=== PATIENT | male | born 1985 | race Caucasian/White ===

== ENCOUNTER 2024-01-28 12:47 | Outpatient (CLI) | payer MEDICAID, SELFPAY ==
[2024-01-28 10:28] LABS: HCT 48.4 % (40.0-50.0); HGB 16.5 g/dL (13.5-17.5); MCH 29.3 pg (27.0-33.0); MCHC 34.1 % (32.0-36.0); MCV 86 fL (80-95); MPV 9.6 fL (8.0-11.0); Platelet Count 228 10^3/uL (130-400); RBC 5.64 10^6/uL (4.36-5.78); RDW 13.2 % (11.8-14.1); RDW-SD 41.2 fL
[2024-01-28 10:55] LABS: ALT 40 U/L (16-63); AST 26 U/L (15-37); Albumin 4.2 g/dL (3.4-5.0); Alkaline Phosphatase 75 U/L (46-116); Anion Gap 13.7 mmol/L (3-11); BUN 20 mg/dL (7-18); Bilirubin, Total 0.5 mg/dL (0.2-1.0); CO2 26.3 mmol/L (21.0-32.0); CREATININE 1.3 mg/dL (0.70-1.30); Calcium 9.3 mg/dL (8.5-10.1); Calculated LDL 202 mg/dL (<100); Chloride 105 mmol/L (98-107); Cholesterol 292 mg/dL (<200); Estimated GFR 71.22 (mL/min/1.73m2); Glucose 86 mg/dL (74-106); HDL Cholesterol 68 mg/dL (40-60); Potassium 4.1 mmol/L (3.5-5.1); Sodium 145 mmol/L (136-145); TSH 7.56 uIU/Ml (0.36-3.74); Total Protein 8.1 g/dL (6.4-8.2); Triglyceride 113 mg/dL (<150)
[2024-01-28 11:20] LABS: Hemoglobin A1C 5.4 % (<5.7)
[2024-01-28 18:11] LABS: PSA, Screening 0.3 ng/mL (<=2.5)
[2024-01-28 18:12] LABS: HBs Antibody, Quant <3.1 mIU/mL (See Note); Hepatitis B Surface Ab Negative (See Note)
[2024-01-28 18:57] LABS: Hepatitis C Ab w Rflx HCV PCR Negative (Negative)
[2024-01-28 20:47] LABS: Hep A Total Ab w Rflx IgM Positive (Negative)
[2024-01-29 09:56] LABS: Hep A Antibody IgM Negative (Negative)
== END 2024-01-28 12:48 | disposition home or self-care (01) ==
LOC: LBO 12:48
PROVIDERS: PCP Nurse Practitioner Family; Visit Provider Nurse Practitioner Family
DX: E78.00 Pure hypercholesterolemia, unspecified (principal); I10 Essential (primary) hypertension
CPT/HCPCS: 36415; 80053; 80061; 84153; 85027; 86706; 86709; 86803; 83036; 84443

== ENCOUNTER 2024-05-28 19:30 | Outpatient (CLI) | payer MEDICAID, SELFPAY ==
[2024-05-28 16:28] LABS: Abs Immature Grans 0.03 10^3/uL (0.0-0.06); Absolute Basophil Count 0.06 10^3/uL (0.0-0.2); Absolute Eosinophil Count 0.12 10^3/uL (0.0-0.7); Absolute Lymphocyte Count 1.74 10^3/uL (1.2-3.4); Absolute Neutrophil Count 5.48 10^3/uL (1.2-6.7); Basophils % 0.8 %; Eosinophils % 1.5 %; HCT 46.1 % (40.0-50.0); HGB 15.5 g/dL (13.5-17.5); Immature Grans % 0.4 %; Lymphocytes % 21.9 %; MCH 29.7 pg (27.0-33.0); MCHC 33.6 % (32.0-36.0); MCV 88 fL (80-95); MPV 9.4 fL (8.0-11.0); Monocytes % 6.3 %; Neutrophils % 69.1 %; Platelet Count 246 10^3/uL (130-400); RBC 5.22 10^6/uL (4.36-5.78); RDW 12.9 % (11.8-14.1); RDW-SD 41.5 fL; WBC 7.93 10^3/uL (4.4-10.8)
[2024-05-28 16:43] LABS: Hemoglobin A1C 5.5 % (<5.7)
[2024-05-28 17:15] LABS: ALT 36 U/L (16-63); AST 23 U/L (15-37); Albumin 4.1 g/dL (3.4-5.0); Alkaline Phosphatase 76 U/L (46-116); Anion Gap 8.6 mmol/L (3-11); BUN 21 mg/dL (7-18); Bilirubin, Total 0.42 mg/dL (0.2-1.0); CO2 30.4 mmol/L (21.0-32.0); CREATININE 1.1 mg/dL (0.70-1.30); Calcium 9.3 mg/dL (8.5-10.1); Calculated LDL 148 mg/dL (<100); Chloride 107 mmol/L (98-107); Cholesterol 228 mg/dL (<200); Estimated GFR 87.03 (mL/min/1.73m2); Glucose 109 mg/dL (74-106); HDL Cholesterol 66 mg/dL (40-60); Potassium 4.6 mmol/L (3.5-5.1); Sodium 146 mmol/L (136-145); TSH (W/Ref FT4) 1.98 uIU/mL (0.36-3.74); Total Protein 8.1 g/dL (6.4-8.2); Triglyceride 70 mg/dL (<150)
[2024-05-28 17:17] LABS: *AMPHETAMINES SCREEN URINE Negative (Negative); *BARBITURATES SCREEN URINE Negative (Negative); *BENZODIAZEPINES SCREEN URINE Positive (Negative); Cannabinoids THC Negative (Negative); Cocaine Screen,Urine Negative (Negative); METHADONE URINE SCREEN Negative (Negative); OPIATES URINE SCREEN Negative (Negative); Tricyclic Antidepressants Negative (Negative)
[2024-05-28 21:00] LABS: Vitamin D 25 Total 41.9 ng/mL (30-100)
== END 2024-05-28 19:31 | disposition home or self-care (01) ==
LOC: LBO 19:30
PROVIDERS: PCP Nurse Practitioner Family; Visit Provider Nurse Practitioner Family
DX: E55.9 Vitamin D deficiency, unspecified (principal); D51.3 Other dietary vitamin B12 deficiency anemia; I10 Essential (primary) hypertension; E78.5 Hyperlipidemia, unspecified; Z00.00 Encounter for general adult medical examination without abnormal findings
CPT/HCPCS: 36415; 80053; 80061; 80307; 82306; 83036; 84443; 85025

== ENCOUNTER 2024-07-20 12:33 | Outpatient (CLI) | payer MEDICAID, SELFPAY ==
[2024-07-20 13:14] LABS: TSH (W/Ref FT4) 3.19 uIU/mL (0.36-3.74)
== END 2024-07-20 12:34 | disposition home or self-care (01) ==
PROVIDERS: PCP Nurse Practitioner Family; Visit Provider Nurse Practitioner Family
DX: E03.9 Hypothyroidism, unspecified (principal)
CPT/HCPCS: 36415; 84443

== ENCOUNTER 2025-02-15 16:52 | Outpatient (CLI) | payer MEDICAID, SELFPAY ==
[2025-02-15 16:57] LABS: HCT 46.2 % (40.0-50.0); HGB 15.6 g/dL (13.5-17.5); MCH 30.1 pg (27.0-33.0); MCHC 33.8 % (32.0-36.0); MCV 89 fL (80-95); Platelet Count 313 10^3/uL (130-400); RBC 5.18 10^6/uL (4.36-5.78); RDW 13.3 % (11.8-14.1); RDW-SD 43.5 fL; WBC 8.25 10^3/uL (4.4-10.8)
[2025-02-15 17:08] LABS: Hemoglobin A1C 5.6 % (<5.7)
[2025-02-15 17:35] LABS: ALT 51 U/L (16-63); AST 51 U/L (15-37); Albumin 4.3 g/dL (3.4-5.0); Alkaline Phosphatase 59 U/L (46-116); Anion Gap 12.5 mmol/L (3-11); BUN 46 mg/dL (7-18); Bilirubin, Total 0.5 mg/dL (0.2-1.0); CO2 22.5 mmol/L (21.0-32.0); CREATININE 1.3 mg/dL (0.70-1.30); Calcium 9.6 mg/dL (8.5-10.1); Calculated LDL 127 mg/dL (<100); Chloride 106 mmol/L (98-107); Cholesterol 229 mg/dL (<200); Estimated GFR 70.78 (mL/min/1.73m2); Glucose 114 mg/dL (74-106); HDL Cholesterol 60 mg/dL (>or=40); Potassium 5.1 mmol/L (3.5-5.1); Sodium 141 mmol/L (136-145); TSH 3.11 uIU/mL (0.36-3.74); Total Protein 8.1 g/dL (6.4-8.2); Triglyceride 212 mg/dL (<150)
== END 2025-02-15 16:53 | disposition home or self-care (01) ==
LOC: LBO 16:53
PROVIDERS: PCP Nurse Practitioner Family; Visit Provider Nurse Practitioner Family
DX: I10 Essential (primary) hypertension (principal)
CPT/HCPCS: 36415; 80053; 80061; 85027; 83036; 84443

== ENCOUNTER 2025-10-19 10:55 | Outpatient (CLI) | payer MEDICAID, SELFPAY ==
[2025-10-19 10:50] LABS: INR 2.2 (0.9-1.1); Prothrombin Time 20.6 sec (9.1-11.1)
== END 2025-10-19 10:56 | disposition home or self-care (01) ==
LOC: LBO 10:55
PROVIDERS: PCP Nurse Practitioner Family; Visit Provider Internal Medicine Medical Oncology
DX: Z95.2 Presence of prosthetic heart valve (principal)
CPT/HCPCS: 36415; 85610

== ENCOUNTER 2025-10-26 14:09 | Outpatient (CLI) | payer MEDICAID, SELFPAY ==
[2025-10-26 14:40] LABS: INR 1.8 (0.9-1.1); Prothrombin Time 17.6 sec (9.1-11.1)
== END 2025-10-26 14:10 | disposition home or self-care (01) ==
LOC: LBO 14:10
PROVIDERS: PCP Nurse Practitioner Family; Visit Provider Internal Medicine Medical Oncology
DX: Z95.2 Presence of prosthetic heart valve (principal)
CPT/HCPCS: 36415; 85610

== ENCOUNTER 2025-10-30 13:23 | Emergency (ER) | payer MEDICAID, SELFPAY ==
[2025-10-30 13:25] VITALS: BP 184/90; PULSE 81; RESP 14; TEMP 36.6; O2SAT 97
--- NOTE | 2025-10-30 13:30 | DI.RAD_ITS ---
Exam(s) XR WRIST RT COMPLETE EXAM: XR WRIST RT COMPLETE CLINICAL HISTORY: Pain, swelling. TECHNIQUE: 2D digital imaging was performed of the right wrist. Three views were obtained. PA, lateral and oblique views were obtained. COMPARISON: No exams were available for comparison FINDINGS: BONES: No acute fracture is present. No bony destructive lesion is seen. JOINTS: The carpal bones are normally aligned. SOFT TISSUE: Normal. IMPRESSION: 1. Unremarkable radiographs of the right wrist. 2. The preliminary [facility] report was reviewed. DATA REPOSITORY: RADIATION DOSE DELIVERED:
--- NOTE | 2025-10-30 13:46 | W.ED.GENAD ---
Discharge Plan Disposition Patient Disposition: Home Condition: Stable Discharge Details Clinical Impression: Arthralgia of right wrist Primary Care Provider: Rita Brito ED Provider: Alina Willis Home Meds and New Rx's Prescriptions: No Action warfarin 5 mg tablet 5 mg PO DAILY Patient Comments: TAKE ONE TABLET BY MOUTH EVERY DAY metoprolol succinate 50 mg tablet extended release 24 hr 50 mg PO DAILY Patient Comments: TAKE ONE TABLET BY MOUTH EVERY DAY levothyroxine 25 mcg tablet 25 mcg PO DAILY Patient Comments: TAKE 1 TABLET BY MOUTH EVERY DAY lisinopril 40 mg tablet 40 mg PO DAILY Patient Comments: TAKE ONE TABLET BY MOUTH EVERY DAY clonazepam 0.5 mg tablet 0.5 mg PO BID PRN Patient Comments: TAKE ONE TABLET BY MOUTH TWICE A DAY bupropion HCl 300 mg tablet extended release 24 hr 300 mg PO DAILY Patient Comments: TAKE 1 TABLET BY MOUTH EVERY DAY escitalopram oxalate 20 mg tablet 20 mg PO DAILY Patient Comments: TAKE 1 TABLET BY MOUTH EVERY DAY budesonide-formoterol [Symbicort] 160-4.5 mcg/actuation HFA aerosol inhaler 2 inh INHALATION BID PRN Patient Comments: INHALE TWO PUFFS BY MOUTH TWICE A DAY baclofen 10 mg tablet 10 mg PO BID PRN Patient Comments: TAKE ONE TABLET BY MOUTH TWICE A DAY azelastine 137 mcg (0.1 %) spray,non-aerosol 2 spray INTRANASAL ONCE PRN Patient Comments: USE 2 SPRAYS IN EACH NOSTRIL ONCE DAILY montelukast [Singulair] 10 mg tablet 10 mg PO QHS Discharge Instructions Instructions: Joint Pain Additional Instructions: No evidence of acute abnormality on x-rays. Please continue to take Tylenol as directed, Rest, Ice, Compression, and elevation. You may try some topical Voltaren gel which is a local gel or similar. Follow up with primary care provider in 3-5 days. Return to ED sooner if any worsening or concerns. Stand Alone Forms: Portal Information Referrals: Rita Brito [Primary Care Provider, Medicine] - 3 days Clinical Impression: Arthralgia of right wrist Discharge Data Discharge Date/Time-TO BE ENTERED AT DEPARTURE: 10/30/25 15:25 HPI General Mode of arrival: ambulatory. Date/Time Provider Initiated Documentation: 10/30/25 13:33. Limitations to Documentation: no limitations. Information obtained by: patient, RN notes reviewed and old records reviewed. HPI Narrative: 40 year old male presents with Right wrist pain and swelling worse over the last 2 days. Reports had been sore from using a stationary bike and resting his wrist on the bar. This morning he noticed increased swelling after wearing a rigid wrist brace which he got [id number]. He reports that the brace made the pain worse. Denies any known falls or injuries. Did take Tylenol 4 hours ago prior to arrival. Recently 6 weeks ago had open heart surgery and valve replacement. Does take Coumadin daily lisinopril levothyroxine. Denies any other associated symptoms or concerns. Related Data Home Medications ?Medication ?Instructions ?Recorded ?Confirmed azelastine 137 mcg (0.1 %) nasal 2 spray intranasal ONCE PRN 10/30/25 10/30/25 spray baclofen 10 mg tablet 10 mg PO BID PRN 10/30/25 10/30/25 budesonide-formoterol HFA 160 2 inh inhalation BID PRN 10/30/25 10/30/25 mcg-4.5 mcg/actuation aerosol inhaler (Symbicort) bupropion HCl 300 mg 24 hr tablet, 300 mg PO DAILY 10/30/25 10/30/25 extended release clonazepam 0.5 mg tablet 0.5 mg PO BID PRN 10/30/25 10/30/25 escitalopram oxalate 20 mg tablet 20 mg PO DAILY 10/30/25 10/30/25 levothyroxine 25 mcg tablet 25 mcg PO DAILY 10/30/25 10/30/25 lisinopril 40 mg tablet 40 mg PO DAILY 10/30/25 10/30/25 metoprolol succinate 50 mg 50 mg PO DAILY 10/30/25 10/30/25 tablet,extended release 24 hr montelukast 10 mg tablet 10 mg PO QHS 10/30/25 10/30/25 (Singulair) warfarin 5 mg tablet 5 mg PO DAILY 10/30/25 10/30/25 Allergies Allergy/AdvReac Type Severity Reaction Status Date / Time No Known Allergies Allergy Unverified 10/30/25 13:32 General Stated Complaint: Orthopedic HANG: 4 Review of Systems Musculoskeletal Musculoskeletal: Reports arthralgias and Reports joint swelling Exam Extrem Right upper extremity: wrist Details: tenderness Location: of the dorsal wrist, swelling Location: of the dorsal wrist and normal vascular exam; no abrasions, no lacerations and no deformity Course Vital Signs Vital signs: Vital Signs Temperature 36.6 C 10/30/25 13:25 Pulse 81 10/30/25 13:25 Respiratory Rate 14 10/30/25 13:25 Blood Pressure 184/90 H 10/30/25 13:25 Pulse Oximetry 97 10/30/25 13:25 Temperature 36.6 C 10/30/25 13:25 Temperature Source Oral 10/30/25 13:25 Pulse 81 10/30/25 13:25 Respiratory Rate 14 10/30/25 13:25 Blood Pressure 184/90 H 10/30/25 13:25 Blood Pressure Position Sitting 10/30/25 13:25 Pulse Oximetry 97 10/30/25 13:25 Oxygen Delivery Method Room Air 10/30/25 13: Oxygen Flow Rate 0 10/30/25 13:25 Medical Decision Making 40 year old male presents with Right wrist pain and swelling worse over the last 2 days. Reports had been sore from using a stationary bike and resting his wrist on the bar. This morning he noticed increased swelling after wearing a rigid wrist brace which he got [id number]. He reports that the brace made the pain worse. Denies any known falls or injuries. Did take Tylenol 4 hours ago prior to arrival. Recently 6 weeks ago had open heart surgery and valve replacement. Does take Coumadin daily lisinopril levothyroxine. Denies any other associated symptoms or concerns. X-ray right wrist ordered. Xray shows no acute abnormality, will give josh wrap and have patient follow up with PCP. Will insdtruct to continue to take Tylenol as needed RICE procedures. This text was generated using [employer] system, please disregard any oddities of phrase or misspellings. Imaging Data Radiologic Study: Imaging: X-Ray Radiologist's impression: Exam: XR Right Wrist Exam date and time: 10/30/2025 1:55 PM Age: 40 years old Clinical indication: Pain; Wrist; TECHNIQUE: Imaging protocol: Radiologic exam of the right wrist. Views: 3 or more views. COMPARISON: No relevant prior studies available. FINDINGS: Bones/joints: There is no evidence of acute fracture.There is no evidence of malalignment or dislocation. Soft tissues: Soft tissue swelling of the wrist IMPRESSION: There is no evidence of acute fracture.There is no evidence of malalignment or dislocation. Thank you for allowing us to participate in the care of your patient. Dictated and Authenticated by: Vikki Hampton MD [facility] All Active Problems (Updated 10/30/25 @ 14:57 by Alina Willis NP) Arthralgia of right wrist (Acute) Social History Smoking risk assessment performed?: No Alcohol Intake: never Substance use type: does not use
--- NOTE | 2025-10-30 14:51 | DI.[facility]_ITS ---
PROCEDURE INFORMATION: Exam: XR Right Wrist Exam date and time: 10/30/2025 1:55 PM Age: 40 years old Clinical indication: Pain; Wrist; TECHNIQUE: Imaging protocol: Radiologic exam of the right wrist. Views: 3 or more views. COMPARISON: No relevant prior studies available. FINDINGS: Bones/joints: There is no evidence of acute fracture.There is no evidence of malalignment or dislocation. Soft tissues: Soft tissue swelling of the wrist IMPRESSION: There is no evidence of acute fracture.There is no evidence of malalignment or dislocation. Dictated and Authenticated by: Vikki Hampton MD. Orderin Lazaro Fuller MD
[2025-10-30 15:24] VITALS: BP 158/81; PULSE 71; RESP 18; O2SAT 100
== END 2025-10-30 15:25 | disposition home or self-care (01) ==
PROVIDERS: Emergency Provider Registered Nurse Emergency; PCP Nurse Practitioner Family
DX: M25.531 Pain in right wrist (principal)
CPT/HCPCS: 99283 ×2; 73110

== ENCOUNTER 2025-11-01 13:23 | Outpatient (CLI) | payer MEDICAID, SELFPAY ==
[2025-11-01 13:37] LABS: INR 2.2 (0.9-1.1); Prothrombin Time 20.7 sec (9.1-11.1)
== END 2025-11-01 13:24 | disposition home or self-care (01) ==
LOC: LBO 13:23
PROVIDERS: PCP Nurse Practitioner Family; Visit Provider Internal Medicine Medical Oncology
DX: Z95.2 Presence of prosthetic heart valve (principal)
CPT/HCPCS: 36415; 85610

== ENCOUNTER 2025-11-09 16:04 | Outpatient (CLI) | payer MEDICAID, SELFPAY ==
[2025-11-09 16:32] LABS: INR 2.3 (0.9-1.1); Prothrombin Time 21.7 sec (9.1-11.1)
== END 2025-11-09 16:05 | disposition home or self-care (01) ==
PROVIDERS: PCP Nurse Practitioner Family; Visit Provider Internal Medicine Medical Oncology
DX: Z95.2 Presence of prosthetic heart valve (principal)
CPT/HCPCS: 36415; 85610